=== PATIENT | male | born 1985 | race Caucasian/White ===

== ENCOUNTER 2018-09-20 08:31 | Emergency (ER) | END 2018-09-20 09:43 | disposition home or self-care (01) ==

== ENCOUNTER 2018-10-27 11:04 | Emergency (ER) | payer MEDICAID ==
[~2018-10-27] VITALS: Ht 167.6 cm; Wt 73.2 kg
[~2018-10-27 11:04] MED LIST: HYDR-4011 PO; NAPR-985 PO
[2018-10-27 11:09] VITALS: BP 154/86; PULSE 80; RESP 16; Ht 167.6 cm; Wt 73.2 kg
[2018-10-27] MEDS ORDERED: KETOROLAC 60 MG INJ IM STA (12:18)
[2018-10-27] MEDS ORDERED: TRAM50TA2 PO (12:27)
[2018-10-27] MEDS ORDERED: IBUP-1542 PO (12:27)
--- NOTE | 2018-10-27 12:30 | ERD ---
ER Documentation Chief Complaint Chief Complaint pt bib self with c/o back pain nonprovoked approx 2 hrs ago HPI 33-year-old male presents with sudden onset of right upper back pain after r olling out of bed this morning. Denies restricted range of motion, weakness, headache, hemoptysis, shortness of breath or chest pain. Denies any urinary complaints or hematuria. ROS All systems reviewed and are negative except as per history of present illness. Medications Home Meds Active Scripts Tramadol HCl (Tramadol HCl) 50 Mg Tablet, 50 MG PO Q4 PRN for PAIN, #12 TAB Prov:CHERYL GASTELUM MD 10/27/18 Ibuprofen* (Motrin*) 600 Mg Tab, 600 MG PO Q6, #20 TAB Prov:CHERYL GASTELUM MD 10/27/18 Naproxen* (Naprosyn*) 500 Mg Tablet, 500 MG PO BID PRN for PAIN AND/OR INFLAMMATION, #30 TAB Prov:ARIANA SAL PA-C 09/20/18 Hydrocodone/Acetaminophen ([place] 5-325 Tablet) 1 Each Tablet, 1 TAB PO Q6H PRN for PAIN, #7 TAB Prov:ARIANA SAL PA-C 09/20/18 Allergies Allergies: Coded Allergies: No Known Allergy (Unverified , 10/27/18) PMhx/Soc History of Surgery: No Hx Neurological Disorder: No Hx Respiratory Disorders: No Hx Cardiac Disorders: No Hx Psychiatric Problems: No Hx Miscellaneous Medical Probl: No Hx Alcohol Use: Yes (occassional) Hx Substance Use: No Hx Tobacco Use: No Physical Exam Vitals Vital Signs Date Temp Pulse Resp B/P (MAP) Pulse Ox O2 O2 Flow FiO2 Time Delivery Rate 10/27/18 97.8 80 16 154/86 98 11:09 (108) Physical Exam Const: No acute distress Head: Atraumatic Eyes: Normal Conjunctiva ENT: Normal External Ears, Nose and Mouth. Neck: Full range of motion. No meningismus. Resp: Clear to auscultation bilaterally Cardio: Regular rate and rhythm, no murmurs Abd: Soft, non tender, non distended. Normal bowel sounds Skin: No petechiae or rashes Back: No midline or flank tenderness. Reproducible right upper thoracic spasm approximately T8. No midline tenderness, skin changes. Ext: No cyanosis, or edema Neur: Awake and alert. Normal gait. No appreciable focal neurologic deficits Psych: Normal Mood and Affect Results 24 hrs Current Medications Medications Dose Sig/[facility] Start Time Status Last (Trade) Ordered Route PRN Stop Time Admin Dose Reason Admin Ketorolac 60 mg ONCE STAT 10/27/18 DC Tromethamine IM 12:18 (Toradol) 10/27/18 12:19 Procedures/MDM Patient presents with reproducible right upper thoracic back pain likely muscle spasm or strain. Patient was given Toradol 60 mg IM. Doubt intrathoracic or cardiopulmonary etiology and symptoms do not suggest genitourinary cause given the reproducible musculoskeletal tenderness. He will be treated with ibuprofen, tramadol, instructions for stretching, massage, primary care follow-up and return precautions. The patient was stable with no new complaints during the ER course. Clinically, there is no current evidence to suggest meningitis, sepsis, acute abdomen, pneumonia, stroke, acute coronary syndrome, pulmonary embolism, aortic dissection or any other emergent condition appearing to require further evaluation or hospitalization. Patient counseled regarding my diagnostic impression and care plan. Prior to discharge all questions answered. Pt agrees with treatment plan and understands strict return precautions. Pt is instructed to follow up with primary care provider within 24-48 hours. Precautionary instructions provided including instructions to return to the ER if not improving or for any worsening or changing symptoms or concerns. . Departure Diagnosis: Primary Impression: Strain of thoracic spine Encounter type: initial encounter Qualified Codes: S29.019A - Strain of muscle and tendon of unspecified wall of thorax, initial encounter Additional Impression: Back pain Back pain location: thoracic back pain Chronicity: acute Back pain laterality: right Qualified Codes: M54.6 - Pain in thoracic spine Condition: Stable Patient Instructions: Thoracic Strain Additional Instructions: Recommend stretching and massage. Likely muscle spasm or strain. Recheck for new or worsening symptoms with primary care doctor. CHERYL GASTELUM MD Oct 27, 2018 12:30
== END 2018-10-27 13:30 | disposition home or self-care (01) ==
LOC: FTE 11:04
DX: S29.019A Strain of muscle and tendon of unspecified wall of thorax, initial encounter (principal); W06.XXXA Fall from bed, initial encounter; Y92.9 Unspecified place or not applicable
CPT/HCPCS: 96372; J1885; Z7502